=== PATIENT | female | born 1940 | race African-American/Black ===

== ENCOUNTER 2017-04-13 13:17 | Observation (INO) ==
[2017-04-13] MEDS ORDERED: ENOXAPARIN 100 MG/ML SYRINGE SUBCUT STA (13:40)
[2017-04-13] MEDS ORDERED: ASPIRIN 325 MG TABLET PO STA (13:40)
[2017-04-13] MEDS ORDERED: NITROGLYCERIN SL 0.4 MG TABLET SL PRN (13:40)
--- NOTE | 2017-04-13 13:44 | EKG Report ---
Stationary ECG Study [facility] ER Test Date: 04/13/2017 1:45:12 PM Pat Name: PRITI QUEZADA Department: Room: 267 Gender: F Principle Industrial Hygienist: RACHEL Cain : 1940 Requested by: Alessio Batista Order Number: [id number] Reading MD: RIVAS MEJIA Intervals [place] Rate: 78 P: 71 MD: 164 QRS: 67 QRSD: 79 T: 74 QT: 358 QTc: 392 Interpretive Statements SINUS RHYTHM POSSIBLE OLD ANTEROSEPTAL MYOCARDIAL INFARCTION Electronically Signed On 04-15-17 07:02:16 CDT by RIVAS MEJIA [email or web address]
--- NOTE | 2017-04-13 13:57 | XRay Report ---
Portable chest Date: 04/13/2017 Clinical history: Chest pain Comparison: None Technique: Portable AP sitting chest Findings: The heart is normal in size with uncoiling of the aorta. Calcified granulomata/nodes with minimal atelectasis at the lung bases. Minimal blunting of the left costophrenic angle. Unremarkable mediastinum with degenerative changes. Impression: Minimal atelectasis at the lung bases. Blunting of the left costophrenic angle which may be related to very small pleural effusion. PROCEDURE INTERPRETED AT [facility] Final Report Signed by: Dr. Jessica Pantoja
[2017-04-13] MEDS ORDERED: ENOXAPARIN 80 MG/0.8 ML SYRINGE SUBCUT ONE (14:29)
[2017-04-13] MEDS ORDERED: ASPIRIN 325 MG TABLET ONE (14:30)
[2017-04-13 15:25] LABS: Basophils % 0.3 % (0.0-0.8); Eosinophils # 0.1 10*3/uL (0.0-0.87); Hematocrit 46.4 VOL% (35.7-47.0); Hemoglobin 15.7 GM/DL (12.0-16.0); Immature Granulocytes % 0.4 %; Immature Granulocytes Absolute 0.04 #; Lymphocytes % 33.8 % (21.3-54.2); Mean Corpuscular HGB Conc 33.8 GM/DL (32-36); Mean Corpuscular Hemoglobin 29 PG (27-34); Mean Corpuscular Volume 86.1 FL (87-102); Mean Platelet Volume 11.3 FL (9.6-12.0); Monocytes # 0.7 10*3/uL (0.11-0.8); Neutrophils # 5.1 10*3/uL (1.4-7.4); Neutrophils % 56.5 % (38.7-73.9); Platelet Count 223 T/CUMM (130-400); Red Blood Count 5.39 MC/CUMM (3.8-5.5)
[2017-04-13 15:46] LABS: Albumin 3.9 G/DL (3.4-5.0); Bilirubin,Total 0.8 MG/DL (0.2-1.0); Calcium 10.6 MG/DL (8.5-10.1); Magnesium 2.3 MG/DL (1.8-2.4); Osmolality,Calculated 275.4 MOS/KG (273-304); Total Protein 8.3 G/DL (6.4-8.3)
[2017-04-13] MEDS ORDERED: KETOROLAC 10 MG TABLET ONE (15:47)
--- NOTE | 2017-04-13 16:10 | Emergency Department Note ---
Woo Gonsales Manpreet, am scribing for, and in the presence of, Alessio Rao MD 13:45. Jalen Gonsales Phillip K, MD, personally performed the services described in this documentation, ascribed by Deshaun Berkowitz in my presence, and it is both accurate and complete [id number] . Arrival - Arrival Chief Complaint: Chest Pain Stated Complaint: cp ED Nursing Triage Note: Pt c/o Chest pain and SOB since last wk. States she was admitted last wk to [facility] for dehydration. Mode of Arrival: Wheelchair Limitations: No Limitations Source: Patient - History of Present Illness HPI Narrative: Pt is a 76 y/o female who presents to the ED with CC of CP since last 2 weeks. Pt describes the pain as heavy which worsens on exertion. The pain is accompanied by tingling in her left arm, dry cough, nausea, SOB, and diaphoresis. Pt was hospitalized for the same complaint 04/06/2017. Pt reports of smoking cigarettes everyday. No other complaints/pains reported to ED. Onset (ago): week(s) Consistency: constant Severity: moderate Severity scale (1-10): 4 Quality: other (Heavy) Allergies/Adverse Reactions: Allergies Allergy/AdvReac Type Severity Reaction Status Date / Time acetaminophen Allergy RASH Verified 04/13/17 13:20 [From Darvocet-N] codeine Allergy RASH Verified 04/13/17 13:20 propoxyphene Allergy RASH Verified 04/13/17 13:20 [From Darvocet-N] "Pain Pills" AdvReac Vomiting Uncoded 04/13/17 13:21 Home Medications: Home Medications Medication Instructions Recorded Confirmed Type Atorvastatin Calcium 20 mg PO QPM 04/13/17 04/13/17 History Levothyroxine Tab [Synthroid Tab] 88 mcg PO DAILY 04/13/17 04/13/17 History Lisinopril 40 mg PO DAILY 04/13/17 04/13/17 History Review of System - Review of System 12 point system: reviewed and no additional remarkable complaints except as stated - Review of System Constitutional: Present: diaphoresis. Absent: chills, fever Respiratory: Present: cough, respiratory distress Cardiovascular: Present: chest pain, dyspnea on exertion Gastrointestinal: Present: nausea. Absent: abdominal pain, vomiting, diarrhea Musculoskeletal: Absent: arm pain, arthralgia, back pain Neurological: Present: paresthesias (In left arm). Absent: headache Medical,Surgical,& Family Hx - Medical History Cardio: History of: Hypertension Endocrine: History of: Dyslipidemia, Thyroid Disorder - Social History Smoking Status: Current every day smoker Exam Vital Signs: Vital Signs Temperature 98.5 F 04/13/17 13:25 Pulse Rate 91 H 04/13/17 13:25 Respiratory Rate 18 04/13/17 13:25 Blood Pressure 140/100 04/13/17 13:25 O2 Sat by Pulse Oximetry 97 04/13/17 13:25 - General General appearance: alert, in no apparent distress - Head Head exam: Present: atraumatic, normocephalic, normal inspection - Eye Eye exam: Present: normal appearance, PERRL, EOMI - ENT ENT exam: Present: normal exam, normal oropharynx, mucous membranes moist, TM's normal bilaterally - Neck Neck exam: Present: normal inspection, full ROM, trachea midline. Absent: tenderness, thyromegaly - Chest Chest inspection: Present: normal inspection, symmetric chest wall rise. Absent : tenderness - Respiratory Respiratory exam: Present: rales (Bibasal rales), wheezes (Expiratory wheezes). Absent: normal lung sounds bilaterally, accessory muscle use - Cardiovascular Cardiovascular exam: Present: regular rate, normal rhythm, normal heart sounds. Absent: murmur, rubs, gallop - Abdominal Exam Abdominal exam: Present: soft, normal bowel sounds. Absent: distention - Extremities Exam Extremities exam: Present: normal inspection, full ROM. Absent: tenderness - Back Exam Back exam: Present: normal inspection, full ROM. Absent: tenderness - Neurological Exam Neurological exam: Present: alert, oriented X3, CN II-XII intact - Psychiatric Psychiatric exam: Present: normal affect, normal mood - Skin Skin exam: Present: warm, dry, intact, normal color. Absent: pallor Course Course Narrative: Patient discussed with the hospitalist nurse practitioner and the fireworks display specialist nurse practitioner. Results - Labs CBC & BMP: 04/13/17 15:15 04/13/17 15:15 Lab Results: I have reviewed the patients labs Labs: Laboratory Tests 04/13/17 15:15 WBC 9.0 RBC 5.39 Hgb 15.7 Hct 46.4 MCV 86.1 L Plt Count 223 Laboratory Tests 04/13/17 15:15 Sodium 140 Potassium 5.0 Chloride 106 Carbon Dioxide 27 BUN/Creatinine Ratio 10.00 Calcium 10.6 H Globulin 4.4 H Albumin/Globulin Ratio 0.8 L Laboratory Tests 04/13/17 04/13/17 15:15 15:15 Troponin I < 0.015 B-Natriuretic Peptide 14 - EKG EKG results: interpreted by ERMD, WNL, sinus rhythm - Diagnostic Findings Procedure: Chest x-ray: report reviewed by me (Minimal atelectasis at the lung bases. Blunting of the left costophrenic angle which may be related to very small pleural effusion.) Disposition Clinical Impression: Chest pain, Unstable angina pectoris, Hypertension Case discussed with: patient Disposition: Still a Patient Condition: Guarded Additional Instructions: Admit to Dr. samuels
--- NOTE | 2017-04-13 16:38 | Hospitalist History & Physical ---
Assessment and Plan - Time spent with patient Time spent with patient: Less than 30 minutes (1) Chest pain Status: Acute Assessment and plan: Patient's be admitted for chest pain. Will obtain serial cardiac isoenzymes and EKGs. Will provide aspirin, nitrates, beta-nicki. Will consult cardiology to assist with further evaluation and recommendations. Current Visit: Yes (2) Hypothyroid Status: Chronic Assessment and plan: Patient has a history of hypothyroidism and has on replacement therapy. Will obtain TSH. Current Visit: Yes (3) Hypertension Status: Chronic Assessment and plan: Patient has history of chronic essential hypertension. Will continue her current medical regimen. Current Visit: Yes Qualifiers: Hypertension type: essential hypertension Qualified Code(s): I10 - Essential (primary) hypertension (4) Hyperlipidemia Status: Chronic Assessment and plan: Patient is being treated for hyperlipidemia. Will continue statin therapy and obtain lipid panel. Current Visit: Yes (5) Tobacco use Status: Acute Assessment and plan: Have counseled her and encouraged her for smoking cessation. Current Visit: Yes History of Present Illness Chief complaint: Chest pain History of present illness: Ms. Umanzor is a 76 year old -Indian female who states over the past 2 weeks she has had substernal chest pain described as a pressure with associated palpitations and shortness of breath but no nausea or diaphoresis. It typically last about 15 minutes and spontaneously resolved. She states that when she gets up and walks around it increases the discomfort. She denies any fever, chills, heartburn, indigestion, nausea, vomiting, diarrhea, constipation , melena, hematochezia, hematemesis, dysuria, hematuria, urinary frequency urgency or incontinence, focal motor weakness or paresthesias. She states that occasionally when she stands she gets dizzy. Her past medical history is significant for hypertension, hypothyroidism and hyperlipidemia. She denies any prior history of coronary artery disease. She is a smoker approximately one third pack per day. Family history is negative for premature coronary disease. Home Medications Medication Instructions Recorded Confirmed Type Atorvastatin Calcium 20 mg PO QPM 04/13/17 04/13/17 History Levothyroxine Tab [Synthroid Tab] 88 mcg PO DAILY 04/13/17 04/13/17 History Lisinopril 40 mg PO DAILY 04/13/17 04/13/17 History Allergies Allergy/AdvReac Type Severity Reaction Status Date / Time acetaminophen Allergy RASH Verified 04/13/17 13:20 [From Darvocet-N] codeine Allergy RASH Verified 04/13/17 13:20 propoxyphene Allergy RASH Verified 04/13/17 13:20 [From Darvocet-N] "Pain Pills" AdvReac Vomiting Uncoded 04/13/17 13:21 Medical,Surgical,& Family Hx - Medical History Cardio: History of: Hypertension Endocrine: History of: Dyslipidemia, Thyroid Disorder - Surgical History Reproductive Surgeries: Surgical HX of;: Hysterectomy Orthopedic Surgeries: Surgical HX of;: Total Hip Replacement - Family History Family History: Denies;: Family Heart Disease - Social History Smoking Status: Current every day smoker Have you smoked in the last 12 months: Yes Time spent discussing smoking cessation with patient: 3 to 10 minutes Frequency of Alcohol Use: None Type of Drug Use: None Marital Status: Lives With:: Spouse Functional capacity: independent ambulation 12 point system: reviewed and no additional remarkable complaints except as stated Exam - Constitutional Vitals: Period Temp Pulse Resp BP Sys/White Pulse Ox Last 24 Hr 98.5 F 91 18 140/100 97 General appearance: no acute distress - Head Head exam: Present: normocephalic, atraumatic - Eye Eye exam: Present: EOMI Pupils: Present: ALBERTO - ENT ENT exam: Present: normal exam - Neck Neck exam: Present: normal inspection - Respiratory Respiratory exam: Present: clear to auscultation bilaterally. Absent: rales, rhonchi, wheezes - Cardiovascular Cardiovascular exam: Present: regular rate and rhythm. Absent: systolic murmur , tachycardia - GI/Abdominal GI/Abdominal exam: Present: normal bowel sounds, soft. Absent: distended, mass , tenderness, rebound - Extremities Exam Extremities exam: Absent: calf tenderness, edema - Back Exam Back exam: Present: normal inspection - Neurological Exam Neurological exam: Present: alert, oriented X3, CN II-XII intact. Absent: motor sensory deficit - Psychiatric Psychiatric exam: Present: normal affect, normal mood. Absent: agitated, anxious - Skin Skin exam: Present: warm, dry. Absent: erythema, rash Results - Labs CBC & BMP: 04/13/17 15:15 04/13/17 15:15 Lab Results: I have reviewed the past 24 hour labs - EKG EKG shows: sinus rhythm - Diagnostic Findings Procedure: Chest x-ray: report reviewed by me
[2017-04-13] MEDS ORDERED: SODIUM CHLORIDE 0.45% 1,000 ML IV SCH (18:46)
[2017-04-13] MEDS ORDERED: ACETAMINOPHEN 325 MG TABLET PO PRN (18:46)
[2017-04-13] MEDS ORDERED: ONDANSETRON 4 MG/2 ML VIAL IV PRN (18:46)
[2017-04-13] MEDS ORDERED: ENOXAPARIN 40 MG/0.4 ML SYRINGE SUBCUT SCH (18:46)
[2017-04-13] MEDS ORDERED: NICOTINE 21 MG/24 HR PATCH TRANSDERM PRN (18:46)
[2017-04-13] MEDS ORDERED: ATORVASTATIN 20 MG TABLET PO SCH (19:00)
[2017-04-13] MEDS ORDERED: METOPROLOL TARTRATE 25 MG TABLET PO SCH (21:00)
[2017-04-13] MEDS: NITROGLYCERIN 2% OINT 1 INCH/GM PACK TOP SCH (21:07)
[2017-04-14] MEDS: NITROGLYCERIN 2% OINT 1 INCH/GM PACK TOP SCH ×2 (01:12→06:21)
[2017-04-14 05:56] LABS: Risk Ratio 3.44; VLDL CHOLESTEROL 18.6 MG/DL
--- NOTE | 2017-04-14 07:48 | EKG Report ---
Stationary ECG Study [facility] Test Date: 04/14/2017 2:29:25 AM Pat Name: PRITI QUEZADA Department: Room: 267 Gender: F Medication Care Manager: : 1940 Requested by: Alessio Batista Order Number: [id number] Reading MD: RIVAS MEJIA Intervals [place] Rate: 59 P: 44 GA: 216 QRS: 43 QRSD: 84 T: 46 QT: 417 QTc: 417 Interpretive Statements SINUS BRADYCARDIA WITH FIRST DEGREE AV BLOCK Electronically Signed On 04-15-17 07:40:44 CDT by RIVAS MEJIA [id number]
[2017-04-14] MEDS ORDERED: LEVOTHYROXINE 88 MCG TABLET PO SCH (09:00)
[2017-04-14] MEDS ORDERED: LISINOPRIL 20 MG TABLET PO SCH (09:00)
[2017-04-14] MEDS ORDERED: PANTOPRAZOLE 40 MG TABLET PO SCH (09:00)
[2017-04-14] MEDS ORDERED: ASPIRIN EC 325 MG TABLET PO SCH (09:00)
--- NOTE | 2017-04-14 09:10 | Cardiology Consult Note ---
<Shabnam Hughes E - Last Filed: 04/14/17 09:35> Assessment and Plan - Time spent with patient Time spent with patient: Greater than 30 minutes Time spent discussing smoking cessation with patient: 3 to 10 minutes (1) Chest pain Status: Acute Assessment and plan: SEE PLAN OF CARE LISTED BELOW Current Visit: Yes (2) Tobacco use Status: Chronic Assessment and plan: SEE PLAN OF CARE LISTED BELOW Current Visit: Yes (3) Hyperlipidemia Status: Chronic Assessment and plan: SEE PLAN OF CARE LISTED BELOW Current Visit: Yes (4) Hypertension Status: Chronic Assessment and plan: SEE PLAN OF CARE LISTED BELOW Current Visit: Yes Qualifiers: Hypertension type: essential hypertension Qualified Code(s): I10 - Essential (primary) hypertension History of Present Illness - Data of Consult Patient: new to practice Consult date: 04/14/17 Requesting Physician: Erik Leal - Consult Narrative Reason for consult: chest pain History of present illness: GREEN MARKETER: (NEW) DR. REED Ms. Umanzor, 76BF, has never been followed by cardiology. Risk factors include: Hypertension, dyslipidemia, tobacco use, sedentary lifestyle. Patient presented to the emergency department at [facility] with complaints of chest pain occurring intermittently over the past 2 weeks. Patient was hospitalized in [place], [place] last week for the same complaints. Chest discomfort is occurring daily and is described as tightness located laterally across her chest with heart pounding. Occasionally, this is associated with shortness of breath. She can identify no aggravating factors nor any alleviating factors. Lasts various amount of time but usually 3-5 minutes. She is currently chest pain-free. She is unable to write the discomfort on a scale of 1-10. Cardiac biomarkers are negative. EKG is unremarkable. I discussed with Dr. Reed. Patient is NPO and we will take her for Lexiscan stress testing this morning. Of note, patient has severe right hip pain and is actually scheduled to undergo a hip procedure in [place], [place] by Dr. Potts in 1 month. ASSESSMENT/PLAN: 1. CHEST PAIN - will undergo Lexiscan stress testing this morning. Echocardiogram has been ordered. Currently on aspirin, beta-nicki, LISA inhibitor and Lipitor. Patient also describes heart pounding. May consider event monitor at discharge. 2. HYPERTENSION - overall, adequately controlled. Will adjust medications accordingly during hospital stay. 3. DYSLIPIDEMIA - LDL 93. Continue lipid-lowering agent. 4. TOBACCOISM -the merits of tobacco cessation was thoroughly discussed for greater than 5 minutes. CC: Werner James MD - Home Medications and Allergies Home Medications: Home Medications Medication Instructions Recorded Confirmed Type Atorvastatin Calcium 20 mg PO QPM 04/13/17 04/13/17 History Levothyroxine Tab [Synthroid Tab] 88 mcg PO DAILY 04/13/17 04/13/17 History Lisinopril 40 mg PO QAM 04/13/17 04/13/17 History Allergies/Adverse Reactions: Allergies Allergy/AdvReac Type Severity Reaction Status Date / Time acetaminophen Allergy RASH Verified 04/13/17 13:20 [From Darvocet-N] codeine Allergy RASH Verified 04/13/17 13:20 propoxyphene Allergy RASH Verified 04/13/17 13:20 [From Darvocet-N] "Pain Pills" AdvReac Vomiting Uncoded 04/13/17 13:21 Review of systems: REVIEW OF SYSTEMS: See HPI - Constitutional Constitutional: Present: Fatigue. Absent: syncope, anorexia, night sweats - EENT Eyes: Absent: blurry vision, loss of vision, diplopia Ears: Absent: decreased hearing, ear pain, ear discharge - Cardiovascular Cardiovascular: Present: chest pain with exertion, chest pain at rest. Occasional dyspnea on exertion, palpitations. Denies edema. Absent: chest pain with deep breath, claudication - Respiratory Respiratory: Present: Occasional MONTERO, denies. Absent: wheezing, hemoptysis, change in phlegm color - Gastrointestinal Gastrointestinal: Denies: constipation. Absent: adbominal pain, hematemesis, hematochezia, melena, change in bowel habits, nausea - Genitourinary Genitourinary: Absent: difficulty urinating, dysuria, urinary hesitancy, flank pain - Musculoskeletal Musculoskeletal: Present: back pain, right hip pain absent: joint swelling, muscle cramps, muscle weakness - Neurological Neurological: Present: normal gait without frequent falls. Absent: dizziness, hemiparesis - Psychiatric Psychiatric: Absent: anxiety, depression, difficulty concentrating - Endocrine Endocrine: Present: fatigue. Absent: cold intolerance, heat intolerance, polyuria, polyphagia, polydipsia - Hematologic/Lymphatic Hematologic/Lymphatic: Present: easy bruising. Absent: easy bleeding -Integumentary Integumentary: Absent: lesions, rashes, skin breakdown Medical,Surgical,& Family Hx - Medical History Cardio: History of: Hypertension No history of: Cardiac Dysrhythmia, CAD, [place], Cardiovascular Problems Neurology: No history of: Dementia, Seizures Endocrine: History of: Dyslipidemia, Thyroid Disorder - Surgical History Abdominal Surgeries: Surgical HX of: Cholecystectomy Reproductive Surgeries: Surgical HX of;: Hysterectomy Orthopedic Surgeries: Surgical HX of;: Total Hip Replacement - Family History Family History: Reports;: Family Diabetes (sister), Family Hypertension (sister) , Family Stroke (sister) Denies;: Family Heart Disease (sister) - Social History Smoking Status: Current every day smoker Have you smoked in the last 12 months: Yes Time spent discussing smoking cessation with patient: 3 to 10 minutes Frequency of Alcohol Use: None Type of Drug Use: None Physical Examination Vital Signs Temp Pulse Resp BP Pulse Ox 98.5 F 91 H 18 140/100 97 04/13/17 13:25 04/13/17 13:25 04/13/17 13:25 04/13/17 13:25 04/13/17 13:25 General: [Appears well with no apparent distress.] [Pleasant and cooperative. ] [Appears comfortable.] HEENT: [PERRL, normocephalic, atraumatic. Mucous membranes moist. No jaundice noted. Conjunctiva moist and clear, sclerae anicteric] Neck: No JVD/HJR, no thyromegaly or lymphadenopathy noted. No carotid bruit appreciated Cardiac: [Regular rate and rhythm.] [No obvious murmur rub or gallop.] Lungs: [Clear to auscultation without accessory muscle use to assist the respiratory pattern.] Not requiring oxygen Abdomen: Soft, bowel sounds normoactive. Nontender and nondistended. No abdominal bruit or thrill noted. No masses noted. Musculoskeletal: No fluid collection. Decreased range of motion is noted. Extremities: No clubbing, cyanosis noted. [ No edema noted.] Upper extremity pulses 2+. Lower extremity pulses 2+. Capillary refill less than 3 seconds. Skin: No unusual lesions or rashes. No skin breakdown appreciated. Neuro: Awake, alert and oriented 3. Moves all extremities well without hemiparesis or paralysis. No essential tremor is appreciated. Result/EKG - Labs CBC & BMP: 04/13/17 15:15 04/13/17 15:15 Lab Results: I have reviewed the past 24 hour labs Labs: Laboratory Results - last 24 hr 04/13/17 04/13/17 04/13/17 15:15 15:15 15:15 WBC 9.0 RBC 5.39 Hgb 15.7 Hct 46.4 MCV 86.1 L MCH 29 MCHC 33.8 RDW 16.0 Plt Count 223 MPV 11.3 Neut % (Auto) 56.5 Lymph % (Auto) 33.8 [place]field % (Auto) 8.0 Eos % (Auto) 1.0 Baso % (Auto) 0.3 Neut # (Auto) 5.1 Lymph # (Auto) 3.0 Whitfield # (Auto) 0.7 Eos # (Auto) 0.1 Baso # (Auto) 0.0 Immature Gran % 0.4 Nucleated RBC % 0.0 Immature Gran # 0.04 Nucleated RBCs # 0.00 Sodium 140 Potassium 5.0 Chloride 106 Carbon Dioxide 27 Anion Gap 12.0 BUN 8 Creatinine 0.80 GFR Calculation 95 BUN/Creatinine Ratio 10.00 Glucose 82 Calculated Osmolality 275.4 Calcium 10.6 H Magnesium 2.3 Total Bilirubin 0.80 AST 31 ALT 20 Alkaline Phosphatase 84 Troponin I B-Natriuretic Peptide 14 Total Protein 8.3 Albumin 3.9 Globulin 4.4 H Albumin/Globulin Ratio 0.8 L Triglycerides Cholesterol LDL Cholesterol VLDL Cholesterol HDL Cholesterol Heart Disease Risk Ratio Free T4 TSH 3rd Generation 04/13/17 04/13/17 04/13/17 15:15 18:56 18:58 WBC RBC Hgb Hct MCV MCH MCHC RDW Plt Count MPV Neut % (Auto) Lymph % (Auto) [place] % (Auto) Eos % (Auto) Baso % (Auto) Neut # (Auto) Lymph # (Auto) Whitfield # (Auto) Eos # (Auto) Baso # (Auto) Immature Gran % Nucleated RBC % Immature Gran # Nucleated RBCs # Sodium Potassium Chloride Carbon Dioxide Anion Gap BUN Creatinine GFR Calculation BUN/Creatinine Ratio Glucose Calculated Osmolality Calcium Magnesium Total Bilirubin AST ALT Alkaline Phosphatase Troponin I < 0.015 < 0.015 B-Natriuretic Peptide Total Protein Albumin Globulin Albumin/Globulin Ratio Triglycerides Cholesterol LDL Cholesterol VLDL Cholesterol HDL Cholesterol Heart Disease Risk Ratio Free T4 TSH 3rd Generation 0.889 04/13/17 04/13/17 04/14/17 18:58 22:54 03:28 WBC RBC Hgb Hct MCV MCH MCHC RDW Plt Count MPV Neut % (Auto) Lymph % (Auto) [place] % (Auto) Eos % (Auto) Baso % (Auto) Neut # (Auto) Lymph # (Auto) Whitfield # (Auto) Eos # (Auto) Baso # (Auto) Immature Gran % Nucleated RBC % Immature Gran # Nucleated RBCs # Sodium Potassium Chloride Carbon Dioxide Anion Gap BUN Creatinine GFR Calculation BUN/Creatinine Ratio Glucose Calculated Osmolality Calcium Magnesium Total Bilirubin AST ALT Alkaline Phosphatase Troponin I < 0.015 B-Natriuretic Peptide Total Protein Albumin Globulin Albumin/Globulin Ratio Triglycerides 93 Cholesterol 141 LDL Cholesterol 93.0 VLDL Cholesterol 18.6 HDL Cholesterol 41 Heart Disease Risk Ratio 3.44 Free T4 1.18 TSH 3rd Generation - Diagnostic Findings Procedure: Chest x-ray: report reviewed by me - EKG EKG results: interpreted by fl EKG shows: sinus rhythm <Richie Reed - Last Filed: 04/14/17 16:24> History of Present Illness - Consult Narrative History of present illness: Ms. Umanzor is a 76 year old female CC: Werner James MD Physical Examination Vital Signs Temp Pulse Resp BP Pulse Ox 98.5 F 91 H 18 140/100 97 04/13/17 13:25 04/13/17 13:25 04/13/17 13:25 04/13/17 13:25 04/13/17 13:25 Result/EKG - Labs CBC & BMP: 04/13/17 15:15 04/13/17 15:15 Labs: Laboratory Results - last 24 hr 04/13/17 04/13/17 04/13/17 18:56 18:58 18:58 Troponin I < 0.015 Triglycerides Cholesterol LDL Cholesterol VLDL Cholesterol HDL Cholesterol Heart Disease Risk Ratio Free T4 1.18 TSH 3rd Generation 0.889 04/13/17 04/14/17 22:54 03:28 Troponin I < 0.015 Triglycerides 93 Cholesterol 141 LDL Cholesterol 93.0 VLDL Cholesterol 18.6 HDL Cholesterol 41 Heart Disease Risk Ratio 3.44 Free T4 TSH 3rd Generation
--- NOTE | 2017-04-14 13:47 | Hospitalist Progress Note ---
Assessment and Plan (1) Chest pain Status: Acute Assessment and plan: The patient is moved the hospital with precordial chest pain. The patient will have Lexiscan test today to stratify risk of coronary obstructions. Current Visit: Yes Qualifiers: Chest pain type: precordial pain Qualified Code(s): R07.2 - Precordial pain (2) Hypertension Status: Chronic Current Visit: Yes Qualifiers: Hypertension type: essential hypertension Qualified Code(s): I10 - Essential (primary) hypertension (3) Hypothyroid Status: Chronic Current Visit: Yes Hospitalist: Subjective Interval history: Ms. Umnazor is a 76 year old -[place] female who states over the past 2 weeks she has had substernal chest pain described as a pressure with associated palpitations and shortness of breath but no nausea or diaphoresis. I coordinate care with the cardiology team today. They plan Lexiscan to evaluate for coronary ischemia. Exam - Constitutional Vitals: Period Temp Pulse Resp BP Sys/White Pulse Ox Last 24 Hr 97 F-99.5 F 60-91 18-20 116-162/68-100 94-100 General appearance: no acute distress - Respiratory Respiratory exam: Present: clear to auscultation bilaterally - Cardiovascular Cardiovascular exam: Present: regular rate and rhythm Results - Labs CBC & BMP: 04/13/17 15:15 04/13/17 15:15 Lab Results: I have reviewed the past 24 hour labs
[2017-04-14] MEDS ORDERED: REGADENOSON 0.4 MG/5 ML SYRINGE IV ONE (15:08)
[2017-04-14 16:06] VITALS: BP 181/91
--- NOTE | 2017-04-14 16:15 | Event Note ---
Underwent Lexiscan stress testing due to right hip pain. No ST changes or arrhythmia noted. Tolerated without complaints of chest pain, heaviness, tightness or shortness of breath. Blood pressure responded appropriately. At this time, she is being transitioned to the final nuclear scan. Dr. Castillo to read, interpreted and advise.
--- NOTE | 2017-04-14 16:47 | Discharge Summary ---
Hospital Course - Hospital Course Hospital Course: The patient was admitted to the hospital due to chest discomfort. Myocardial infarction was ruled out by EKG and enzymes. The patient was seen in consultation by Dr. Ball the following day. Lexiscan study revealed no evidence of coronary ischemia. The patient is improved to baseline and is now ready for discharge home and follow-up in the office with her primary care physician. On the date of discharge, chest clear, abdomen soft, heart has regular rate and rhythm. Total time required for today's visits, documentation , and education was 34 minutes. - Time spent with patient Time with patient DS: Greater than 30 minutes Diagnosis - Discharge Diagnosis (1) Chest pain Status: Acute (2) Hypertension Status: Chronic (3) Hypothyroid Status: Chronic Specialty Discharge - Follow Up or Referrals Follow up with: Richie Castillo MD [Physician] - (04/28 @120) Discharge Plan - Discharge Data Disposition: Disch To Home/Self Care Condition at Discharge: Stable Discharge Diet: heart healthy Activity: resume usual activities as tolerated - Discharge Medications Continue Lisinopril 40 mg PO QAM Levothyroxine Tab [Synthroid Tab] 88 mcg PO DAILY Atorvastatin Calcium 20 mg PO QPM - Follow Up or Referral Follow Up: Richie Castillo MD [Physician] - (04/28 @120) - Forms/Instructions Exam - Constitutional Vitals: Period Temp Pulse Resp BP Sys/White Pulse Ox Last 24 Hr 97 F-99.5 F 60-91 18-20 116-181/68-100 94-100 Discharge Results Procedures and tests throughout hospitalization: Pending Orders 04/14/17 09:32 NM amara perf SPECT rest or str Routine 04/15/17 04:00 BMP w/ Mg [Basic Metabolic Panel w/Mg] IN AM CBC [Comp Blood Count Auto Diff] IN AM Labs on day of discharge: Labs from last 24 hours 04/14/17 04/13/17 04/13/17 03:28 22:54 18:58 Troponin I < 0.015 Triglycerides 93 Cholesterol 141 LDL Cholesterol 93.0 VLDL Cholesterol 18.6 HDL Cholesterol 41 Heart Disease Risk Ratio 3.44 Free T4 1.18 TSH 3rd Generation 04/13/17 04/13/17 18:58 18:56 Troponin I < 0.015 Triglycerides Cholesterol LDL Cholesterol VLDL Cholesterol HDL Cholesterol Heart Disease Risk Ratio Free T4 TSH 3rd Generation 0.889 DS: Provider Date of admission: 04/13/17 16:37 Primary care physician: . No PCP Attending physician on admission: Caleb Winter MD Consults: 04/13/17 18:46 Consult to Physician [CONS] Routine Comment: cp Consulting Provider: Cardiology - [facility] Person Notified: Rober Date Notified: 04/14/17 Time Notified: 09:15 Discharging clinician: Werner James MD
--- NOTE | 2017-04-14 18:07 | ECHO Report ---
Sandy Umanzor 04/14/2017 Exam Date: 08:44 Referring Physician: whitney Tijerina Technologist: BENITO LUCIANO Age: 76 Ht (in): 69 Wt (lb): 176 FExam Location: [facility] Gender: Echo [id number]: Chest pain, unspecified, Essential Indications: hypertension, Hypothyroidism, Hyperlipidemia, Tobacco abuse BP: 134 / 80 HR: 60 SinusRhythm: Technical Quality: IMPRESSIONS Normal chamber sizes 1+ concentric LVH Normal LV systolic function with ejection fraction estimated 65% Aortic sclerosis without stenosis Trace to 1+ mitral and tricuspid regurgitation with RVSP 31 mmHg plus RAP MEASUREMENTS (Male / Female) Normal Values 2D ECHO LV Diastolic Diameter PLAX 3.9 cm 4.2 - 5.9 / 3.9 - 5.3 cm LV Systolic Diameter PLAX 3.3 cm LV Fractional Shortening PLAX 16.2 % IVS Diastolic Thickness 1.1 cm 0.6 - 1.0 / 0.6 - 0.9 cm LVPW Diastolic Thickness 1.1 cm 0.6 - 1.0 / 0.6 - 0.9 cm RV Internal Dim ED PLAX 2.7 cm Aortic Root Diameter 3.1 cm LA Systolic Diameter LX 2.3 cm 3.0 - 4.0 / 2.7 - 3.8 cm DOPPLER TR Peak Velocity 277.0 cm/s TR Peak Gradient 30.7 mmHg FINDINGS Left Ventricle Normal left ventricular cavity size. Mild left ventricular hypertrophy. Left ventricular ejection fraction is estimate Right Ventricle The right ventricle is normal in size and function. Right Atrium The right atrium is normal in size. Left Atrium The left atrium is normal in size. Mitral Valve Morphologically normal mitral valve. Trace mitral valve regurgitation. Aortic Valve Morphologically normal aortic valve without significant sclerosis or stenosis. There is no aortic regurgitation. Tricuspid Valve Morphologically normal tricuspid valve. Trace tricuspid valve regurgitation. Tricuspid regurgitation velocities suggest a PAP of 41 mmHg. Pulmonic Valve Morphologically normal pulmonic valve without significant stenosis. There is no pulmonic regurgitation. Pericardium Normal pericardium without effusion. Aorta Normal ascending aorta dimension. Richie Castillo (Electronically Signed) 14 April 2017 Final Date: 18:05
--- NOTE | 2017-04-14 18:37 | Nuclear Medicine Report ---
MYOCARDIAL PERFUSION SCAN DATE: 04/14/2017 BRIEF CLINICAL SUMMARY: Ms. Umanzor is a 76-year-old with risk factors of coronary artery disease, who is having chest discomfort and shortness of breath. PHARMACOLOGIC SESTAMIBI MYOCARDIAL PERFUSION SCAN WITH GATING: The patient was injected with 10 mCi of Sestamibi before being sent for resting images to be obtained. The patient was then placed on the Lexiscan protocol due to hip pain on the right side. She was given Lexiscan followed by 30 mCi of S estamibi and was later sent for stress images to be obtained. She had no symptoms or significant EKG changes during the study. The 3-D orthogonal reconstruction view shows minimal inferior thinning on the rest images, which impr oves on the stress images in the short and vertical axis. There is minimal patient motion. The gated stress images show normal LV systolic function with ejection fraction estimated to be 67%. Wall motion is normal by regional wall motion analysis with normal end-diastolic volume. The raw in the cine mode shows minimal patient motion with moderate subdiaphragmatic artifact and mil d breast attenuation. IMPRESSION: 1. SCINTIGRAPHICALLY NORMAL PHARMACOLOGIC MYOCARDIAL PERFUSION SCAN WITH GATING. 2. NORMAL LEFT VENTRICULAR SYSTOLIC FUNCTION WITH EJECTION FRACTION ESTIMATED TO BE 67%. 3. NORMAL WALL MOTION BY REGION WALL MOTION ANALYSIS WITH NORMAL END-DIASTOLIC VOLUME. DISPOSITION: This is a low-risk study and does not suggest the presence of significant coronary isch emia. The patient's normal LV function is encouraging with regard to cardiovascular prognosis. Procedure performed and interpreted at [facility] Department of Radiology.
== END 2017-04-14 17:57 | disposition home or self-care (01) ==
LOC: N.EDINP 13:17 → N.ED 13:17 → SUATTDRO 16:37 → N.TELES 16:56
PROVIDERS: ADMIT Internal Medicine Infectious Disease; ATTEND Internal Medicine